=== PATIENT | female | born 1945 | race Caucasian/White ===

== ENCOUNTER → 2016-12-01 | Day surgery (SDC) | payer MEDICARE ==
[~2016-12-01] MED LIST: BUPIVACAINE HCL PF 0.5% 30 ML VIAL ONE; BUPIVACAINE HCL PF 0.75% 30 ML VIAL ONE; LACTATED RINGER'S 1000 ML INJ 1,000 ML ONE; LIDOCAINE 1%/EPINEPHrine 1:100,000 SOLN 20 ML VIAL ONE; MIDAZOLAM HCL 2 MG/2 ML VIAL ONE; ONDANSETRON HCL 4 MG/2 ML VIAL IV PUSH ONE; PROPOFOL 200 MG/20 ML AMP IV ONE; ceFAZolin INJ 1,000 MG VIAL ONE
--- NOTE | 2016-12-02 08:38 | TN ---
cc: CHUCHO DUNN DATE OF SURGERY 12/01/2016 PREOPERATIVE DIAGNOSIS Right foot big toe hallux rigidus, osteoarthritis, metatarsal-phalangeal joint. POSTOPERATIVE DIAGNOSIS Right foot big toe hallux rigidus, osteoarthritis, metatarsal-phalangeal joint. PROCEDURE Right foot big toe hallux rigidus correction with cheilectomy. SURGEON Betty Dunn MD. METABOLIC SPECIALIST ANDRE Aguila SPECIMENS None. ESTIMATED BLOOD LOSS None. COMPLICATIONS None. ANESTHESIA General, regional block Dr. Booker. DRAINS None. TOURNIQUET TIME 22 minutes at 200 mmHg. CONDITION Stable. PLAN OF ACTIVITY Per orders. PROCEDURE My quality assistant ANDRE Aguila was present for the entire surgical case. She was medically necessary for entire case because of the complexity of the case and to facilitate the performance of the procedure. The JEWELRY CASTING MODEL MAKER at the back table did not have the skill set in this case to manipulate the instruments. The patient was brought in to the operating room, had satisfactory regional followed by general anesthesia by Dr. Booker of the department of anesthesia. Right lower extremity was prepped and draped in usual sterile manner. Extremity was exsanguinated by [place] wrap. Tourniquet inflated to 200 mmHg. Longitudinal incision was made over the big toe MTP joint. Dissected down to the subcutaneous tissue. The extensor halluces longus and extensor hallicis brevis tendons were gently retracted laterally. The patient was found to have dorsal osteophyte with significant impingement with dorsiflexion. Also medial osteophyte formation was performed used oscillating saw. Removal of dorsal osteophyte in the medial and lateral osteophytes were also performed with the oscillating saw and with a rongeur. The spur involving the dorsal proximal phalanx was also removed. The patient found to have dorsiflexion up to 75 degrees with no further significant impingement. The wound itself was repaired with 2-0 Vicryl and 3-0 Vicryl in the subcutaneous tissues. Skin approximated with interrupted 3-0 nylon. Sterile dressings were applied. Tourniquet was deflated. The patient tolerated the procedure well and arrived in recovery in stable and satisfactory condition. MD KORTNEY Morrow/MARIE /1:27 PM /8:34 AM MTDReji
== END | disposition home or self-care (01) ==
LOC: ESDC 11:18
PROVIDERS: ATTEND Orthopaedic Surgery Orthopaedic Surgery of the Spine
DX: M20.21 Hallux rigidus, right foot (principal); M19.071 Primary osteoarthritis, right ankle and foot
CPT/HCPCS: 01480; 28289; J0690; J2250; J2405; J3010; J7120

== ENCOUNTER 2018-01-02 14:33 | Emergency (ER) | payer MEDICARE ==
[~2018-01-02] VITALS: Ht 170.2 cm; Wt 63.5 kg
[~2018-01-02 14:33] MED LIST changes: -BUPIVACAINE HCL PF 0.5% 30 ML VIAL ONE; -BUPIVACAINE HCL PF 0.75% 30 ML VIAL ONE; +GABA100C4 PO; +IBUP1TAB7 PO; -LACTATED RINGER'S 1000 ML INJ 1,000 ML ONE; +LEVO.125 PO; -LIDOCAINE 1%/EPINEPHrine 1:100,000 SOLN 20 ML VIAL ONE; +MELO15TA20 PO; -MIDAZOLAM HCL 2 MG/2 ML VIAL ONE; -ONDANSETRON HCL 4 MG/2 ML VIAL IV PUSH ONE; -PROPOFOL 200 MG/20 ML AMP IV ONE; -ceFAZolin INJ 1,000 MG VIAL ONE
[2018-01-02 14:35] VITALS: BP 153/80; PULSE 70; RESP 18; TEMP 97.5; O2SAT 88
[2018-01-02 14:47] VITALS: O2SAT 99
[2018-01-02] MEDS ORDERED: MORPHINE SULFATE 4 MG/ML INJ IM ONE ×2 (15:00→16:15)
[2018-01-02] MEDS ORDERED: ONDANSETRON ODT 4 MG TAB PO ONE (15:00)
--- NOTE | 2018-01-02 15:04 | PD ---
HPI Chief Complaint: Injury Time Seen by Provider: 14:48 Travel History International Travel<30 days: No Contact w/Intl Traveler<30days: No Traveled to known affect area: No History of Present Illness HPI 72-year-old female complains of left shoulder pain left elbow pain. Patient tripped and fell this afternoon. Patient denies loss of consciousness. Patient denies any headache. Patient stated that she had chronic neck pain that is not new. Patient denies any chest pain or shortness of breath. Patient denies abdominal pain. Patient complained of severe pain localized to left shoulder and left elbow. Patient denies any focal weakness or numbness of the extremity. on a scale of 1-10 the pain is a 10. PFSH Past Medical History Diminished Hearing: No Medical other: Yes (hyperthyroid, "radioactive to kill thyroid") Tetanus Vaccination: > 5 Years Past Surgical History Hysterectomy: Yes Social History Alcohol Use: No Tobacco Use: No Substance Use: No Allergies-Medications (Allergen,Severity, Reaction): Coded Allergies: No Known Allergies (Verified Allergy, Unknown, 12/31/17) Reported Meds & Prescriptions Reported Meds & Active Scripts Active Reported Ibuprofen 800 Mg Tab 800 Mg PO Q8H PRN Gabapentin 100 Mg Cap 100 Mg PO HS PRN Meloxicam 15 Mg Tab 15 Mg PO DAILY Synthroid (Levothyroxine Sodium) 125 Mcg Tab 125 Mcg PO DAILY Review of Systems General / Constitutional: No: Fever Eyes: No: Visual changes HENT: No: Headaches Cardiovascular: No: Chest Pain or Discomfort Respiratory: No: Shortness of Breath Gastrointestinal: No: Abdominal Pain Genitourinary: No: Dysuria Musculoskeletal: Positive: Pain Skin: No Rash Neurologic: No: Weakness Psychiatric: No: Depression Endocrine: No: Polydipsia Hematologic/Lymphatic: No: Easy Bruising Physical Exam Narrative GENERAL: Well-nourished, well-developed patient. SKIN: Focused skin assessment warm/dry. HEAD: Normocephalic. EYES: No scleral icterus. No injection or drainage. NECK: Supple, trachea midline. No JVD or lymphadenopathy. CARDIOVASCULAR: Regular rate and rhythm without murmurs, gallops, or rubs. RESPIRATORY: Breath sounds equal bilaterally. No accessory muscle use. GASTROINTESTINAL: Abdomen soft, non-tender, nondistended. MUSCULOSKELETAL: No cyanosis, or edema. BACK: Nontender without obvious deformity. No CVA tenderness. Patient has moderate soft tissue swelling tenderness diffuse over the left shoulder joint. Limited range of motion of left shoulder secondary to pain. Moderate tenderness on palpation diffusely over the left elbow. Limited range of motion of left elbow joint secondary to pain. Sensory motor function distally intact. Good capillary refill. Good radial pulses. Data Data Last Documented VS Vital Signs Date Time Temp Pulse Resp B/P (MAP) Pulse Ox O2 Delivery O2 Flow Rate FiO2 01/02/18 14:47 99 01/02/18 14:35 97.5 70 18 153/80 (104) Orders Orders Morphine Inj (Morphine Inj) (01/02/18 15:00) Ondansetron Odt (Zofran Odt) (01/02/18 15:00) Elbow, Limited (Ap&Lat) (01/02/18 14:54) Shoulder, Limited(2vws) (01/02/18 14:54) Splint Or Brace Apply/Monitor (01/02/18 15:49) Morphine Inj (Morphine Inj) (01/02/18 16:15) Ed Discharge Order (01/02/18 16:28) [facility] Medical Decision Making Medical Screen Exam Complete: Yes Emergency Medical Condition: Yes Interpretation(s) Last Impressions Shoulder X-Ray 01/02/18 145 Signed Impressions: CONCLUSION: Proximal humeral fracture with angulation and displacement involving the surgic al neck and greater tuberosity. Elbow X-Ray 01/02/18 145 Signed Impressions: CONCLUSION: No fracture seen. Differential Diagnosis Differential diagnosis including contusion, fracture, dislocation. Narrative Course 72-year-old female with left shoulder left elbow injury. Morphine 4 mg IM. Zofran 4 mg ODT. Sling and swath left arm. Repeated morphine 4 mg IM. Diagnosis Primary Impression: Fracture of left humerus Qualified Codes: S42.222A - 2-part displaced fracture of surgical neck of left humerus, initial encounter for closed fracture Patient Instructions: General Instructions Additional Instructions: Ice pack. Take medication as needed for pain. Follow-up with orthopedist. Med/Other Pt SpecificInfo: Prescription(s) given Scripts Ondansetron Odt (Zofran Odt) 4 Mg Tab 4 MG SL Q6HR Y for Nausea/Vomiting, #12 TAB 0 Refills Prov: Geoff Gastelum MD 01/02/18 Tramadol (Ultram) 50 Mg Tab 50 MG PO Q6H Y for PAIN, #20 TAB 0 Refills Prov: Geoff Gastelum MD 01/02/18 Disposition: 01 DISCHARGE HOME Condition: Stable Geoff Gastelum MD Jan 02, 2018 15:04
--- NOTE | 2018-01-02 15:41 | RADRPT ---
EXAM DATE: 01/02/2018 3:37 PM EDT AGE/SEX: 72 years / Female INDICATIONS: Pain from fall in distal and proximal humerus. CLINICAL DATA: This is the patient's initial encounter. Patient reports that signs and symptoms have been present for 1 day and indicates a pain score of 10/10. MEDICAL/SURGICAL HISTORY: None. None. COMPARISON: No prior exams available for comparison. FINDINGS: There is a angulated and displaced fracture through the surgical neck of the proximal humerus with mi ld angulation and mild separation. A separate fracture line extends to the greater tuberosity. On the transscapular Y view, the humeral head remains in alignment with the glenoid. The AC joint and visua lized upper ribs are grossly intact. CONCLUSION: Proximal humeral fracture with angulation and displacement involving the surgical neck and greater tu berosity. Electronically signed by: Rudi Dennis MD 01/02/2018 3:40 PM EDT
--- NOTE | 2018-01-02 15:42 | RADRPT ---
EXAM DATE: 01/02/2018 3:36 PM EDT AGE/SEX: 72 years / Female INDICATIONS: Pain from fall in distal and proximal humerus. CLINICAL DATA: This is the patient's initial encounter. Patient reports that signs and symptoms have been present for 1 day and indicates a pain score of 10/10. MEDICAL/SURGICAL HISTORY: None. None. COMPARISON: No prior exams available for comparison. FINDINGS: There is a frontal and oblique view. No true lateral. The osseous structures are grossly of normal al ignment. No fracture seen. No radiopaque foreign body. CONCLUSION: No fracture seen. Electronically signed by: Rudi Dennis MD 01/02/2018 3:41 PM EDT
[2018-01-02] MEDS ORDERED: ZOFR4TAB3 SL (16:32)
[2018-01-02] MEDS ORDERED: TRAM50 PO (16:32)
== END 2018-01-02 17:11 | disposition home or self-care (01) ==
LOC: NEPD 14:33
DX: S42.222A 2-part displaced fracture of surgical neck of left humerus, initial encounter for closed fracture (principal); M25.522 Pain in left elbow; M54.2 Cervicalgia; E07.9 Disorder of thyroid, unspecified; W01.0XXA Fall on same level from slipping, tripping and stumbling without subsequent striking against object, initial encounter
CPT/HCPCS: 73030; 73070; 96372; 99283; J2270

== ENCOUNTER 2018-01-08 11:21 | Emergency (ER) | payer MEDICARE ==
[~2018-01-08] VITALS: Ht 170.2 cm; Wt 63.5 kg
[~2018-01-08 11:21] MED LIST changes: +TRAM50 PO; +ZOFR4TAB3 SL
[2018-01-08 11:25] VITALS: BP 119/74; PULSE 90; RESP 18; TEMP 98.3; O2SAT 97
[2018-01-08] MEDS ORDERED: ASPI-516 CHEW (11:57)
[2018-01-08] MEDS ORDERED: MORPHINE SULFATE 4 MG/ML INJ IM ONE (12:15)
[2018-01-08] MEDS ORDERED: PROMETHAZINE INJ 25 MG/ML VIAL IM ONE (12:15)
[2018-01-08 12:56] VITALS: BP 136/77; PULSE 74; RESP 16; O2SAT 97
[2018-01-08] MEDS ORDERED: HYDR-2376 PO (13:13)
--- NOTE | 2018-01-08 13:14 | PD ---
HPI Chief Complaint: Musculoskeletal Complaint Time Seen by Provider: 11:51 Travel History International Travel<30 days: No Contact w/Intl Traveler<30days: No Traveled to known affect area: No History of Present Illness HPI Patient is a 72-year-old female presenting to emergency department for further evaluation after sustaining a proximal humerus fracture on January 02. Patient states that the pain is unrelieved with tramadol. She feels as if the sling is not helping. She denies any numbness, increased swelling, weakness. She also reports frustration with not being able to obtain an orthopedic surgeon quickly enough. She does have an appointment secured with Dr. Genao on Thursday at 430. Patient rates her pain a 9 out of 10, aching, throbbing, sore. No alleviating factors, pain is worse with movement. Pain is constant in nature. PFSH Past Medical History Diminished Hearing: No Past Surgical History Hysterectomy: Yes Social History Alcohol Use: No Tobacco Use: No Substance Use: No Allergies-Medications (Allergen,Severity, Reaction): Coded Allergies: No Known Allergies (Verified Allergy, Unknown, 01/08/18) Reported Meds & Prescriptions Reported Meds & Active Scripts Active Zofran Odt (Ondansetron Odt) 4 Mg Tab 4 Mg SL Q6HR PRN Ultram (Tramadol HCl) 50 Mg Tab 50 Mg PO Q6H PRN Reported Aspirin 81 Mg Chew 81 Mg CHEW DAILY Ibuprofen 800 Mg Tab 800 Mg PO Q8H PRN Gabapentin 100 Mg Cap 100 Mg PO HS PRN Meloxicam 15 Mg Tab 15 Mg PO DAILY Synthroid (Levothyroxine Sodium) 125 Mcg Tab 125 Mcg PO DAILY Review of Systems Except as stated in HPI: all other systems reviewed are Neg Musculoskeletal: Positive: Myalgias, Arthralgias, Limited ROM, Edema, Pain Skin: Positive Change in Pigmentation Physical Exam Narrative GENERAL: Well-developed, well-nourished, well-appearing female. Presenting in no acute distress. SKIN: Warm and dry. Ecchymosis noted to the left shoulder, left breast, left arm. Mild edema noted to the left forearm, nonpitting. HEAD: Atraumatic. Normocephalic. EYES: Pupils equal and round. No scleral icterus. No injection or drainage. ENT: No nasal bleeding or discharge. Mucous membranes pink and moist. NECK: Trachea midline. No JVD. CARDIOVASCULAR: Regular rate and rhythm. RESPIRATORY: No accessory muscle use. Clear to auscultation. Breath sounds equal bilaterally. GASTROINTESTINAL: Abdomen soft, non-tender, nondistended. Hepatic and splenic margins not palpable. MUSCULOSKELETAL: Extremities without clubbing, cyanosis. 2+ radial pulse, brisk less than 3 second capillary refill. NEUROLOGICAL: Awake and alert. No obvious cranial nerve deficits. Motor grossly within normal limits. Five out of 5 muscle strength in the arms and legs. Normal speech. PSYCHIATRIC: Appropriate mood and affect; insight and judgment normal. Data Data Last Documented VS Vital Signs Date Time Temp Pulse Resp B/P (MAP) Pulse Ox O2 Delivery O2 Flow Rate FiO2 01/08/18 12:56 74 16 136/77 (96) 97 Room Air 01/08/18 11:25 98.3 Orders Orders Morphine Inj (Morphine Inj) (01/08/18 12:15) Promethazine Inj (Phenergan Inj) (01/08/18 12:15) [employer] Request For Service (01/08/18 12:07) [facility] Medical Decision Making Medical Screen Exam Complete: Yes Emergency Medical Condition: Yes Interpretation(s) Vital Signs Date Time Temp Pulse Resp B/P (MAP) Pulse Ox O2 Delivery O2 Flow Rate FiO2 01/08/18 12:56 74 16 136/77 (96) 97 Room Air 01/08/18 11:25 98.3 90 18 119/74 (89) 97 Differential Diagnosis Acute pain versus compartment syndrome versus other Narrative Course Patient is a 72-year-old female presenting to emerge department for reevaluation after sustaining a left proximal humerus fracture on the . Patient is neurovascularly intact. [employer] evaluated placement of sling, patient was given morphine IM as well as Phenergan IM for pain control. She has an appointment with Dr. Sullivan on Thursday, she was encouraged to keep that. Patient will be given Lortab for pain. She was advised that her pain may not be completely controlled until her injury is healed, she was encouraged to apply warm heat to the affected area. Keep the sling on for comfort, take medications as directed. She was encouraged to begin a bowel regimen to avoid constipation. He was encouraged return to emergency department for any new worsening symptoms. Patient verbalized understanding of instructions. Patient stable for discharge. Diagnosis Primary Impression: Fracture of left humerus Qualified Codes: S42.292D - Other displaced fracture of upper end of left humerus, subsequent encounter for fracture with routine healing Referrals: Duke Dunn MD Patient Instructions: Constipation (ED), General Instructions, Narcotic Pain Management (ED) Additional Instructions: Follow-up with Dr. Genao on Thursday as scheduled Obtain [id number] MiraLAX and use daily as directed You may trial magnesium citrate which is [id number] for constipation Do not drive or operate machinery while taking narcotic pain medication Return to emergency department for any new or worsening symptoms Med/Other Pt SpecificInfo: Prescription(s) given Scripts Hydrocodone-Acetaminophen (Hydrocodone-Acetaminophen) 7.5-300 Mg Tab 1 TAB PO Q4H Y for PAIN, #15 TAB 0 Refills Prov: Bridgette Jenkins 01/08/18 Disposition: 01 DISCHARGE HOME Condition: Stable Bridgette Jenkins Jan 08, 2018 13:14
[2018-01-09] MEDS ORDERED: ARMO30TA PO (16:10)
[2018-01-09] MEDS ORDERED: COLY4000S PO ×2 (19:11→20:12)
[2018-01-09] MEDS ORDERED: MIRA3350 PO (20:06)
== END 2018-01-08 13:31 | disposition home or self-care (01) ==
LOC: NEPD 11:21
DX: S42.292D Other displaced fracture of upper end of left humerus, subsequent encounter for fracture with routine healing (principal); X58.XXXD Exposure to other specified factors, subsequent encounter; Z79.899 Other long term (current) drug therapy
CPT/HCPCS: 96372; 99283; J2270; J2550

== ENCOUNTER 2018-01-09 14:03 | Emergency (ER) | payer MEDICARE ==
[~2018-01-09] VITALS: Ht 170.2 cm; Wt 65.0 kg
[~2018-01-09 14:03] MED LIST changes: +ASPI-516 CHEW; +HYDR-2376 PO
[2018-01-09 14:11] VITALS: BP 129/87; PULSE 87; RESP 16; TEMP 98.6; O2SAT 96
[2018-01-09] MEDS ORDERED: ARMO30TA PO (16:10)
[2018-01-09] MEDS ORDERED: SODIUM CHLORID 0.9% 500 ML INJ 500 ML IV ONE (16:15)
[2018-01-09] MEDS ORDERED: KETOROLAC TROMETHAMINE 30 MG/ML (IVP) VIAL IVP ONE (16:15)
[2018-01-09 16:48] LABS: AUTOMATED NEUTROPHIL # 6.4 TH/MM3 (1.8-7.7); BASOPHIL % 0.4 % (0.0-2.0); EOSINOPHIL # 0.2 TH/MM3 (0-0.4); HEMATOCRIT 34.5 % (35.0-46.0); HEMOGLOBIN 11.5 GM/DL (11.6-15.3); LYMPH % 10.6 % (9.0-44.0); LYMPHOCYTE # 0.9 TH/MM3 (1.0-4.8); MEAN CELL VOLUME 86.2 FL (80.0-100.0); MEAN CORPUSCULAR HEMOGLOBIN 28.8 PG (27.0-34.0); MEAN CORPUSCULAR HGB CONC 33.4 % (32.0-36.0); MEAN PLATELET VOLUME 7.7 FL (7.0-11.0); MONO % 9.3 % (0.0-8.0); MONOCYTE # 0.8 TH/MM3 (0-0.9); NEUT % 77.7 % (16.0-70.0); PLATELET COUNT 290 TH/MM3 (150-450); RED CELL DISTRIBUTION WIDTH 14.9 % (11.6-17.2); WHITE BLOOD COUNT 8.2 TH/MM3 (4.0-11.0)
[2018-01-09 17:07] LABS: ALBUMIN 3.2 GM/DL (3.4-5.0); AST (GOT) 37 U/L (15-37); BICARBONATE 26.4 MEQ/L (21.0-32.0); BLOOD UREA NITROGEN 11 MG/DL (7-18); CALCIUM 8.5 MG/DL (8.5-10.1); CHLORIDE 101 MEQ/L (98-107); CREATININE 0.65 MG/DL (0.50-1.00); GLOMERULAR FILTRATION RATE 90 ML/MIN (>89); GLUCOSE,RANDOM 78 MG/DL (74-106); SODIUM (NA) 136 MEQ/L (136-145)
[2018-01-09 17:10] LABS: ALKALINE PHOSPHATASE 103 U/L (45-117); ALT (GPT) 37 U/L (10-53); TOTAL BILIRUBIN ADULT 0.8 MG/DL (0.2-1.0); TOTAL PROTEIN 7.2 GM/DL (6.4-8.2)
[2018-01-09 17:32] VITALS: BP 119/69; PULSE 69; RESP 18; TEMP 97.8; O2SAT 98
--- NOTE | 2018-01-09 17:46 | PD ---
HPI Chief Complaint: GI Complaint Time Seen by Provider: 15:48 Travel History International Travel<30 days: No Contact w/Intl Traveler<30days: No Traveled to known affect area: No History of Present Illness HPI 72-year-old female that presents to the ED for evaluation of constipation and left shoulder pain. Patient was seen here yesterday for left shoulder injury. She actually was seen here initially earlier last week and had a fracture and was told to follow with orthopedic surgeon. Check she has an appointment on Thursday with him and was seen yesterday because the pain medication did not help. She was given a prescription for stronger pain medication but was warned that the pain medication and cause constipation. She has noted that she has not had a bowel movement in 9 days and she is concerned that she might be having an obstruction. She has lower abdominal pain. She denies any fevers chills or sweats. Denies any nausea or vomiting. She has not taken the pain medication the past 24 hours because of this. No other medical issues reported. No numbness, drooling, weakness. Per patient she is also a bit concerned about the left shoulder as it seems to be getting more bruised up. No other injuries reported. She uses the sling. Per patient her pain currently on the abdomen is 3 out of 10 and on the left shoulder is 7 out of 10. PFSH Past Medical History Arthritis: Yes Diminished Hearing: No Medical other: Yes Musculoskeletal: Yes Thyroid Disease: Yes Tetanus Vaccination: > 5 Years Influenza Vaccination: No ?: Not : 1 Para: 1 Past Surgical History Gynecologic Surgery: Yes (Hysterectomy) Hysterectomy: Yes Social History Alcohol Use: No Tobacco Use: No Substance Use: No Allergies-Medications (Allergen,Severity, Reaction): Coded Allergies: No Known Allergies (Verified Allergy, Unknown, 01/09/18) Reported Meds & Prescriptions Reported Meds & Active Scripts Active Miralax Powder (Polyethylene Glycol 3350 Powder) 17 Gm Powd 17 Gm PO DAILY Mix and dissolve one measuring cap-ful (17 grams) in water or juice. Golytely 236 gm (Polyethylene Glycol/Electrolytes) 4,000 Ml Soln 4,000 Ml PO ONCE Hydrocodone-Acetaminophen 7.5-300 Mg Tab 1 Tab PO Q4H PRN Zofran Odt (Ondansetron Odt) 4 Mg Tab 4 Mg SL Q6HR PRN Ultram (Tramadol HCl) 50 Mg Tab 50 Mg PO Q6H PRN Reported [facility] Thyroid (Thyroid) 30 Mg Tab 30 Mg PO DAILY Aspirin 81 Mg Chew 81 Mg CHEW DAILY Gabapentin 100 Mg Cap 100 Mg PO HS PRN Review of Systems Except as stated in HPI: all other systems reviewed are Neg Physical Exam Narrative GENERAL: SKIN: Warm and dry. HEAD: Atraumatic. Normocephalic. EYES: Pupils equal and round. No scleral icterus. No injection or drainage. ENT: No nasal bleeding or discharge. Mucous membranes pink and moist. Tongue is midline. No uvula deviation. NECK: Trachea midline. No JVD. CARDIOVASCULAR: Regular rate and rhythm. No murmurs, S3, S4. RESPIRATORY: No accessory muscle use. Clear to auscultation. Breath sounds equal bilaterally. GASTROINTESTINAL: Abdomen soft, tender with touch on the lower abdomen, nondistended. Hepatic and splenic margins not palpable. MUSCULOSKELETAL: Extremities without clubbing, cyanosis, or edema. No obvious deformities. Bruising and deformity to the shoulder on the left shoulder. Has sling in place. NEUROLOGICAL: Awake and alert. No obvious cranial nerve deficits. Motor grossly within normal limits. Five out of 5 muscle strength in the arms and legs. Normal speech. PSYCHIATRIC: Appropriate mood and affect; insight and judgment normal. Data Data Last Documented VS Vital Signs Date Time Temp Pulse Resp B/P (MAP) Pulse Ox O2 Delivery O2 Flow Rate FiO2 01/09/18 17:32 97.8 69 18 119/69 (86) 98 Room Air Orders Orders Complete Blood Count With Diff (01/09/18 16:03) Comprehensive Metabolic Panel (01/09/18 16:03) Lipase (01/09/18 16:03) Ct Abd/Pel W Iv Contrast(Rout) (01/09/18 16:03) Iv Access Insert/Monitor (01/09/18 16:03) Ketorolac Inj (Toradol Inj) (01/09/18 16:15) Sodium Chlorid 0.9% 500 Ml Inj (Ns 500 M (01/09/18 16:15) Shoulder, Limited(2vws) (01/09/18 ) Iohexol 350 Inj (Omnipaque 350 Inj) (01/09/18 18:16) Fleets Enema (Adult) (Fleets Enema (Adul (01/09/18 19:15) Ed Discharge Order (01/09/18 20:06) Labs Laboratory Tests Test 01/09/18 16:15 White Blood Count 8.2 TH/MM3 Red Blood Count 4.00 MIL/MM3 Hemoglobin 11.5 GM/DL Hematocrit 34.5 % Mean Corpuscular Volume 86.2 FL Mean Corpuscular Hemoglobin 28.8 PG Mean Corpuscular Hemoglobin Concent 33.4 % Red Cell Distribution Width 14.9 % Platelet Count 290 TH/MM3 Mean Platelet Volume 7.7 FL Neutrophils (%) (Auto) 77.7 % Lymphocytes (%) (Auto) 10.6 % Monocytes (%) (Auto) 9.3 % Eosinophils (%) (Auto) 2.0 % Basophils (%) (Auto) 0.4 % Neutrophils # (Auto) 6.4 TH/MM3 Lymphocytes # (Auto) 0.9 TH/MM3 Monocytes # (Auto) 0.8 TH/MM3 Eosinophils # (Auto) 0.2 TH/MM3 Basophils # (Auto) 0.0 TH/MM3 CBC Comment DIFF FINAL Differential Comment Blood Urea Nitrogen 11 MG/DL Creatinine 0.65 MG/DL Random Glucose 78 MG/DL Total Protein 7.2 GM/DL Albumin 3.2 GM/DL Calcium Level 8.5 MG/DL Alkaline Phosphatase 103 U/L Aspartate Amino Transf (AST/SGOT) 37 U/L Alanine Aminotransferase (ALT/SGPT) 37 U/L Total Bilirubin 0.8 MG/DL Sodium Level 136 MEQ/L Potassium Level 4.4 MEQ/L Chloride Level 101 MEQ/L Carbon Dioxide Level 26.4 MEQ/L Anion Gap 9 MEQ/L Estimat Glomerular Filtration Rate 90 ML/MIN Lipase 41 U/L [facility] Medical Decision Making Medical Screen Exam Complete: Yes Emergency Medical Condition: Yes Medical Record Reviewed: Yes Interpretation(s) Last Impressions Abdomen/Pelvis CT 01/09/18 1603 Signed Impressions: CONCLUSION: 1. Diffuse ileus with fluid in the proximal colon and formed stool in the dist al colon. No obstruction. No free air. Shoulder X-Ray 01/09/18 0000 Signed Impressions: CONCLUSION: Proximal humeral fracture displaced by at least 1.7 cm. CBC & BMP Diagram 01/09/18 16:15 Total Protein 7.2, Albumin 3.2 L, Calcium Level 8.5, Alkaline Phosphatase 103, Aspartate Amino Transf (AST/SGOT) 37, Alanine Aminotransferase (ALT/SGPT) 37, Total Bilirubin 0.8 lipase WNL Differential Diagnosis Constipation versus obstruction versus diverticulitis versus chronic constipation versus fracture versus chronic pain versus fracture Narrative Course 72-year-old female that presents to the ED for evaluation of left shoulder pain and constipation. Labs and imaging order. Patient offered Toradol she herself does not want to take any pain medication secondary to concern for obstruction. She was told that Toradol will likely not cause any constipation and she agreed with this. Labs and imaging showed what appears to be constipation with ileus. Fracture of the left humerus. Case discussed with my attending Dr. Chavez who recommended rectal exam for rectal disimpaction. Patient agree with this. I attempted fecal disimpaction the patient was able to get a little bit of stool out. She cannot tolerate the procedure much so it was stopped. I gave her the option to have an enema. She had an enema with minimal results. This time I think is reasonable per my attendings recommendation to try GoLYTELY. Patient was given a short prescription for this. She was also given a prescription for MiraLAX. Told to follow-up closely with PCP. See ED if worsening symptoms. Follow with orthopedic surgeon on Thursday as already scheduled. Diagnosis Primary Impression: Constipation Qualified Codes: K59.03 - Drug induced constipation Additional Impression: Fracture of left humerus Qualified Codes: S42.212D - Unspecified displaced fracture of surgical neck of left humerus, subsequent encounter for fracture with routine healing Patient Instructions: General Instructions Additional Instructions: Take medication as prescribed. He can keep taking milk of magnesia twice a day to help with symptoms. YOu can try enemas to help loosen stool. He can also add GoLYTELY to help he go. Once the bottle started going to should be able to go. Follow-up with PCP. See ED if any worsening symptoms. Med/Other Pt SpecificInfo: Prescription(s) given Scripts Polyethylene Glycol 3350 Powder (Miralax Powder) 17 Gm Powd 17 GM PO DAILY for Constipation, #1 CAN 0 Refills Mix and dissolve one measuring cap-ful (17 grams) in water or juice. Prov: Alice Leon MD 01/09/18 Peg-Electrolytes (Golytely 236 gm) 4,000 Ml Soln 4000 ML PO ONCE for Bowel Cleanser, #1 CONTAINER 0 Refills Prov: Alice Leon MD 01/09/18 Disposition: 01 DISCHARGE HOME Condition: Stable Aly Rodriguez Jan 09, 2018 17:46
[2018-01-09] MEDS ORDERED: IOHEXOL 350 MG/ML 10 ML VIAL (for RAD DIAG) IVCONTRAST ONE (18:16)
--- NOTE | 2018-01-09 18:27 | RADRPT ---
EXAM DATE: 01/09/2018 6:21 PM EDT AGE/SEX: 72 years / Female INDICATIONS: Pain in proximal shoulder, due to fracture one week ago. CLINICAL DATA: This is the patient's sequela encounter. Patient reports that signs and symptoms have been present for 1 week and indicates a pain score of 10/10. MEDICAL/SURGICAL HISTORY: None. None. COMPARISON: [facility] [place] ([facility]), 01/02/2018. . FINDINGS: There is a displaced fracture of the proximal left humerus. No dislocation of the shoulder joint. No other fractures are seen. CONCLUSION: Proximal humeral fracture displaced by at least 1.7 cm. Electronically signed by: Sung Nicholas MD 01/09/2018 6:25 PM EDT
--- NOTE | 2018-01-09 18:29 | RADRPT ---
EXAM DATE: 01/09/2018 6:17 PM EDT AGE/SEX: 72 years / Female INDICATIONS: Constipation and distention. Last bowel movement nine days ago. CLINICAL DATA: This is the patient's initial encounter. Patient reports that signs and symptoms have been present for 1 week and indicates a pain score of 2/10. MEDICAL/SURGICAL HISTORY: Hyperthyroidism. Osteoarthritis. Recent left arm fracture. Hysterec shelia. ORAL CONTRAST: No oral contrast ingested. RADIATION DOSE: 9.48 CTDI (mGy) COMPARISON: No prior exams available for comparison. TECHNIQUE: Multiple contiguous axial images were obtained through the abdomen and pelvis following b olus infusion of 95 ml Omnipaque 350 (iohexol) nonionic water-soluble contrast as a single exam dos e. No oral contrast ingested. Using automated exposure control and adjustment of the mA and/or kV ac cording to patient size, the radiation dose was kept as low as reasonably achievable to obtain optima l diagnostic quality images. FINDINGS: Lung bases demonstrate minimal dependent atelectasis. No acute findings in the liver. Small cyst in t he right lobe. Spleen, adrenals, kidneys and pancreas demonstrate no acute findings. No calcified gal lstones or biliary ductal dilatation. No adenopathy. There is a mild ileus with gas and fluid in small and large bowel. Right colon is distended up to 7.6 cm with fluid. No obstruction. Contrast does reach the distal large bowel. There is a mild compression deformity of L3 and L4 which appear old. CONCLUSION: 1. Diffuse ileus with fluid in the proximal colon and formed stool in the distal colon. No obstructi on. No free air. Electronically signed by: Sung Nicholas MD 01/09/2018 6:28 PM EDT
[2018-01-09] MEDS ORDERED: COLY4000S PO ×2 (19:11→20:12)
[2018-01-09] MEDS ORDERED: SOD PHOSPHATE/SOD BIPHOSPHATE (ADULT) ENEMA 133ML RECTAL ONE (19:15)
--- NOTE | 2018-01-09 19:19 | PD ---
Physical Exam Date Seen by Provider: Jan 09, 2018 Time Seen by Provider: 17:00 Narrative I, Dr. Leon, have reviewed the advance practice practitioner's documentation and am in agreement, met with the patient face to face, made the diagnosis, and the medical decision making was done by me. *My assessment and Findings: Patient seen and evaluated with PA, please see PA notes for further details. Here because of constipation for 9 days, abdominal discomfort, has been on opiate pain medications for left humeral fracture. Laboratory Tests Test 01/09/18 16:15 Hemoglobin 11.5 GM/DL (11.6-15.3) Hematocrit 34.5 % (35.0-46.0) Neutrophils (%) (Auto) 77.7 % (16.0-70.0) Monocytes (%) (Auto) 9.3 % (0.0-8.0) Lymphocytes # (Auto) 0.9 TH/MM3 (1.0-4.8) Albumin 3.2 GM/DL (3.4-5.0) Lipase 41 U/L (73-393) Last 24 hours Impressions Abdomen/Pelvis CT 01/09/18 1603 Signed Impressions: CONCLUSION: 1. Diffuse ileus with fluid in the proximal colon and formed stool in the dist al colon. No obstruction. No free air. Shoulder X-Ray 01/09/18 0000 Signed Impressions: CONCLUSION: Proximal humeral fracture displaced by at least 1.[address] did not show any signs of acute intra-abdominal processes. She is quite constipated. She has some underlying diffuse ileus, is on opiate pain medication which is likely making this worse. Patient has not been vomiting I do not think that she is obstructed. A rectal shows large stool mass however patient was not able to tolerate more disimpaction. At this point, she is comfortable with p.o. GoLYTELY and enemas. Return for any worsening in pain, vomiting, or new symptoms as needed. The plan has been discussed with her and she states understanding. Follow-up with orthopedics regarding left humeral fracture. Patient is supposed to see them on Thursday. Data Data Last Documented VS Vital Signs Date Time Temp Pulse Resp B/P (MAP) Pulse Ox O2 Delivery O2 Flow Rate FiO2 01/09/18 17:32 97.8 69 18 119/69 (86) 98 Room Air Orders Orders Complete Blood Count With Diff (01/09/18 16:03) Comprehensive Metabolic Panel (01/09/18 16:03) Lipase (01/09/18 16:03) Ct Abd/Pel W Iv Contrast(Rout) (01/09/18 16:03) Iv Access Insert/Monitor (01/09/18 16:03) Ketorolac Inj (Toradol Inj) (01/09/18 16:15) Sodium Chlorid 0.9% 500 Ml Inj (Ns 500 M (01/09/18 16:15) Shoulder, Limited(2vws) (01/09/18 ) Iohexol 350 Inj (Omnipaque 350 Inj) (01/09/18 18:16) Fleets Enema (Adult) (Fleets Enema (Adul (01/09/18 19:15) Labs Laboratory Tests Test 01/09/18 16:15 White Blood Count 8.2 TH/MM3 Red Blood Count 4.00 MIL/MM3 Hemoglobin 11.5 GM/DL Hematocrit 34.5 % Mean Corpuscular Volume 86.2 FL Mean Corpuscular Hemoglobin 28.8 PG Mean Corpuscular Hemoglobin Concent 33.4 % Red Cell Distribution Width 14.9 % Platelet Count 290 TH/MM3 Mean Platelet Volume 7.7 FL Neutrophils (%) (Auto) 77.7 % Lymphocytes (%) (Auto) 10.6 % Monocytes (%) (Auto) 9.3 % Eosinophils (%) (Auto) 2.0 % Basophils (%) (Auto) 0.4 % Neutrophils # (Auto) 6.4 TH/MM3 Lymphocytes # (Auto) 0.9 TH/MM3 Monocytes # (Auto) 0.8 TH/MM3 Eosinophils # (Auto) 0.2 TH/MM3 Basophils # (Auto) 0.0 TH/MM3 CBC Comment DIFF FINAL Differential Comment Blood Urea Nitrogen 11 MG/DL Creatinine 0.65 MG/DL Random Glucose 78 MG/DL Total Protein 7.2 GM/DL Albumin 3.2 GM/DL Calcium Level 8.5 MG/DL Alkaline Phosphatase 103 U/L Aspartate Amino Transf (AST/SGOT) 37 U/L Alanine Aminotransferase (ALT/SGPT) 37 U/L Total Bilirubin 0.8 MG/DL Sodium Level 136 MEQ/L Potassium Level 4.4 MEQ/L Chloride Level 101 MEQ/L Carbon Dioxide Level 26.4 MEQ/L Anion Gap 9 MEQ/L Estimat Glomerular Filtration Rate 90 ML/MIN Lipase 41 U/L MDM Medical Record Reviewed: Yes Supervised Visit with NANCY: Yes Diagnosis Primary Impression: Constipation Scripts Peg-Electrolytes (Golytely 236 gm) 4,000 Ml Soln 4000 ML PO ONCE for Bowel Cleanser, #1 CONTAINER 0 Refills Prov: Alice Leon MD 01/09/18 Disposition: 01 DISCHARGE HOME Condition: Stable Alice Leon MD Jan 09, 2018 19:18
[2018-01-09] MEDS ORDERED: MIRA3350 PO (20:06)
== END 2018-01-09 20:16 | disposition home or self-care (01) ==
LOC: NEPE 14:03
DX: S42.202D Unspecified fracture of upper end of left humerus, subsequent encounter for fracture with routine healing (principal); K59.00 Constipation, unspecified; K56.7 Ileus, unspecified; M19.90 Unspecified osteoarthritis, unspecified site; E07.9 Disorder of thyroid, unspecified; Z79.82 Long term (current) use of aspirin; Z79.899 Other long term (current) drug therapy; X58.XXXD Exposure to other specified factors, subsequent encounter
CPT/HCPCS: 73030; 74177; 80053; 83690; 85025; 96361; 96374; 99285; J1885; J7040; Q9967

== ENCOUNTER → 2018-01-12 | Outpatient (CLI) | payer MEDICARE ==
[~2018-01-12] MED LIST changes: +ARMO30TA PO; +COLY4000S PO; -IBUP1TAB7 PO; -LEVO.125 PO; -MELO15TA20 PO; +MIRA3350 PO
[2018-01-12 11:05] LABS: BASOPHIL # 0.1 TH/MM3 (0-0.2); BASOPHIL % 1.3 % (0.0-2.0); EOSINOPHIL # 0.2 TH/MM3 (0-0.4); HEMATOCRIT 33.7 % (35.0-46.0); LYMPH % 14.2 % (9.0-44.0); LYMPHOCYTE # 0.8 TH/MM3 (1.0-4.8); MEAN CELL VOLUME 86.4 FL (80.0-100.0); MEAN CORPUSCULAR HEMOGLOBIN 28.2 PG (27.0-34.0); MEAN CORPUSCULAR HGB CONC 32.6 % (32.0-36.0); MEAN PLATELET VOLUME 7.1 FL (7.0-11.0); MONO % 9.3 % (0.0-8.0); MONOCYTE # 0.5 TH/MM3 (0-0.9); NEUT % 71.2 % (16.0-70.0); PLATELET COUNT 327 TH/MM3 (150-450); RED CELL DISTRIBUTION WIDTH 15.2 % (11.6-17.2); WHITE BLOOD COUNT 5.6 TH/MM3 (4.0-11.0)
[2018-01-12 11:30] LABS: BICARBONATE 27.1 MEQ/L (21.0-32.0); CALCIUM 8.9 MG/DL (8.5-10.1); CREATININE 0.72 MG/DL (0.50-1.00)
--- NOTE | 2018-01-12 16:50 | EKG ---
Date Performed: 01/12/2018 Time Performed: 11:16:20 PTAGE: 72 years EKG: Sinus rhythm . Septal T wave changes are nonspecific Low QRS voltages in precordial leads Borderline ECG NO PREVIOUS TRACING DOCTOR: Dl Menard Interpretating Date/Time 01/12/2018 16:46:20
== END ==
LOC: CLAB 10:38
PROVIDERS: ATTEND Orthopaedic Surgery Orthopaedic Surgery of the Spine
DX: Z01.818 Encounter for other preprocedural examination (principal); Z01.810 Encounter for preprocedural cardiovascular examination; S42.291A Other displaced fracture of upper end of right humerus, initial encounter for closed fracture; X58.XXXA Exposure to other specified factors, initial encounter
CPT/HCPCS: 36415; 80048; 85025; 93005

== ENCOUNTER 2018-01-14 06:17 | Observation (INO) | payer MEDICARE ==
[~2018-01-14] VITALS: Ht 170.2 cm; Wt 69.7 kg
[2018-01-14] MEDS ORDERED: CHLORHEXIDINE GLUCONATE 2 % 1 PACK (2 CLOTHS) TOPICAL PRN (06:45)
[2018-01-14] MEDS ORDERED: METOPROLOL TARTRATE 25 MG TAB PO PRN (06:45)
[2018-01-14] MEDS ORDERED: SODIUM CHLORID 0.9% 500 ML IV PRN (06:45)
[2018-01-14] MEDS ORDERED: ceFAZolin 2 GM PREMIX 50 ML IV SCH (06:45)
[2018-01-14] MEDS ORDERED: VANCOMYCIN 1000 MG/NS 250 ML (for <70 kg) IV SCH ×2 (06:45)
[2018-01-14] MEDS ORDERED: POVIDONE IODINE 5% (ANTISEPSIS KIT) 4 APPLICATIONS EACH NARE PRN (06:45)
[2018-01-14] MEDS ORDERED: CHLORHEXIDINE GLUCONATE 4% SOLN 120 ML BTL TOPICAL SCH (06:45)
[2018-01-14] MEDS ORDERED: LACTATED RINGER'S 1000 ML IV PRN (06:45)
[2018-01-14 07:32] VITALS: PULSE 62
[2018-01-14] MEDS ORDERED: GENTAMICIN SULFATE 80 MG/2 ML VIAL ONE (07:44)
[2018-01-14] MEDS ORDERED: fentaNYL CITRATE 250 MCG/5 ML AMP ONE (07:45)
[2018-01-14] MEDS ORDERED: FAT EMULSION 20% INJ 0 ML ONE (07:54)
[2018-01-14 07:59] LABS: AUTOMATED NEUTROPHIL # 3.3 TH/MM3 (1.8-7.7); BASOPHIL # 0.1 TH/MM3 (0-0.2); BASOPHIL % 1.3 % (0.0-2.0); EOSINOPHIL # 0.2 TH/MM3 (0-0.4); EOSINOPHIL % 4.1 % (0.0-4.0); HEMATOCRIT 31.7 % (35.0-46.0); HEMOGLOBIN 10.6 GM/DL (11.6-15.3); LYMPH % 16.8 % (9.0-44.0); LYMPHOCYTE # 0.8 TH/MM3 (1.0-4.8); MEAN CELL VOLUME 85.7 FL (80.0-100.0); MEAN CORPUSCULAR HEMOGLOBIN 28.7 PG (27.0-34.0); MEAN CORPUSCULAR HGB CONC 33.5 % (32.0-36.0); MEAN PLATELET VOLUME 6.9 FL (7.0-11.0); MONO % 9.9 % (0.0-8.0); MONOCYTE # 0.5 TH/MM3 (0-0.9); NEUT % 67.9 % (16.0-70.0); PLATELET COUNT 273 TH/MM3 (150-450); RED CELL DISTRIBUTION WIDTH 15.2 % (11.6-17.2); WHITE BLOOD COUNT 4.8 TH/MM3 (4.0-11.0)
[2018-01-14] MEDS ORDERED: HYDR-2376 PO (07:59)
[2018-01-14] MEDS ORDERED: BUPIVACAINE LIPOSOME PF 1.3% 20 ML VIAL ONE (08:06)
[2018-01-14] MEDS ORDERED: BUPIVACAINE HCL PF 0.25% 30 ML VIAL ONE (08:07)
[2018-01-14] MEDS ORDERED: MIDAZOLAM HCL 5 MG/5 ML VIAL ONE (08:08)
--- NOTE | 2018-01-14 10:08 | PD.OP ---
cc: Prashant Hull MD Operative Report Date of Surgery: Jan 14, 2018 Preoperative Diagnosis: Displaced left proximal humerus fracture Postoperative Diagnosis: Procedure: Open reduction internal fixation left proximal humerus Anesthesia: General with regional block Surgeon: Prashant Hull Canal Equipment Maintenance Supervisor(s): REESE Forrest PA-C The surgical procedure was assisted by my physician registered dental assistant. My P.A. presence was necessary throughout this case for the manipulation and positioning of the surgical extremity. My P.A. was assisting me throughout the duration of this procedure. The skill set of a physician registered dental assistant was medically necessary to complete this procedure. During the surgical case the surgical instrument repair specialist was working at the back table and the physician registered dental assistant was directly assisting me. Operation and Findings: Implants used: Synthes Plan of activity: Sling and swath, pendulum exercises Details of procedure: Patient was seen and evaluated preoperatively. Patient was found to have a displaced proximal humerus fracture. The risks and benefits of surgical and nonsurgical options were discussed in detail and informed consent was obtained for surgery. Patient was brought to the operating room and placed on or table. IV sedation and GETA were administered by anesthesiologist. Antibiotics were given prior to incision. Operative arm and shoulder were prepped with alcohol followed by Hibiclens and draped usual sterile fashion. Timeout procedure was performed. Procedure began with a 5 inch incision over the anterior shoulder. Cephalic vein was identified. A deltopectoral approach was utilized. The fracture was now visualized. Soft tissue was retracted. A #5 FiberWire suture was placed into the rotator rotator cuff and greater tuberosity. Attention was now turned to reduction. Gentle traction was applied. The humeral shaft was reduced to the humeral head. Fracture was manipulated to achieve excellent reduction. Multiplanar fluoroscopy confirmed well aligned fracture. Multiple K wires were used to hold provisional fixation. A Synthes proximal humerus plate was selected. Plate was provisionally held in place K wires. 3.5 cortical screws were used to compress plate to bone. Fluoroscopy confirmed appropriate plate placement and fracture reduction. Multiple locking screws were now placed in the humeral head. Screws were predrilled and premeasured for appropriate length. Care was taken not to penetrate the articular surface. Additional screws were placed in the humeral shaft. The FiberWire suture was passed through the holes of the plate and sutured to the plate for additional stability. Final fluoroscopy revealed well aligned fracture with well-placed hardware. Wound was thoroughly irrigated. Fascia was closed with #1 Vicryl, subcutaneous tissues closed with 3-0 Vicryl, and skin was closed with amelie. Sterile dressings were applied. Patient was placed into a sling. Patient was awakened and transferred to recovery in stable condition. Needle and sponge counts were correct. Prashant Hull MD Jan 14, 2018 10:08
[2018-01-14] MEDS ORDERED: ERGOCALCIFEROL (VIT D2) 50,000 UNIT CAP PO SCH (10:15)
[2018-01-14] MEDS ORDERED: ONDANSETRON ODT 4 MG TAB PO PRN (10:15)
[2018-01-14] MEDS ORDERED: MORPHINE SULFATE 4 MG/ML INJ IV PUSH PRN (10:15)
[2018-01-14] MEDS ORDERED: DO NOT ADM ANY ANTICOAGULANT DRUGS PRN (10:30)
[2018-01-14] MEDS ORDERED: ROCURONIUM INJ 50 MG/5 ML SYRINGE IV PUSH ONE (10:40)
[2018-01-14] MEDS ORDERED: PROPOFOL 200 MG/20 ML AMP IV ONE (10:40)
[2018-01-14] MEDS ORDERED: LIDOCAINE HCL 1% PF 5 ML SYRINGE OTHER ONE (10:40)
[2018-01-14] MEDS ORDERED: NEOSTIGMINE 5 MG/5 ML SYRINGE IV PUSH ONE (10:40)
[2018-01-14] MEDS ORDERED: PHENYLEPH/NS 1000 MCG/10 ML SYR IV ONE (10:40)
[2018-01-14] MEDS ORDERED: ONDANSETRON HCL 4 MG/2 ML VIAL IV PUSH ONE (10:40)
[2018-01-14] MEDS ORDERED: DEXAMETHASONE SOD PHOS 4 MG/ML VIAL IV ONE (10:40)
[2018-01-14] MEDS ORDERED: GLYCOPYRROLATE 1 MG/5 ML SYRINGE IV PUSH ONE (10:40)
[2018-01-14] MEDS ORDERED: *morphine SULFATE 4 MG/ML PERIprocedure ONLY ONE ×2 (10:52→11:13)
[2018-01-14] MEDS ORDERED: diphenhydrAMINE HCL 50 MG/ML VIAL ONE (11:40)
[2018-01-14] MEDS ORDERED: ONDANSETRON ODT 4 MG TAB ONE (11:50)
[2018-01-14] MEDS: CALCIUM/VITAMIN D 250 MG/125 U TAB PO SCH ×2 (13:00→18:21)
[2018-01-14] MEDS: LACTATED RINGER'S 1000 ML INJ 1,000 ML IV SCH (13:00)
[2018-01-14] MEDS ORDERED: ONDANSETRON ODT 4 MG TAB PO ONE (13:45)
--- NOTE | 2018-01-14 15:03 | RADRPT ---
EXAM DATE: 01/14/2018 2:05 PM EDT AGE/SEX: 72 years / Female INDICATIONS: ORIF left humeral head fracture. CLINICAL DATA: This is the patient's initial encounter. Patient reports that signs and symptoms have been present for 1 day and indicates a pain score of Nonresponsive. MEDICAL/SURGICAL HISTORY: Non-responsive. Non-responsive. COMPARISON: No prior exams available for comparison. FINDINGS: 6 images from the OR have been submitted. There is a plate along the lateral aspect of the humeral he ad and proximal humeral shaft secured by multiple screws. The hardware is well placed. The proximal h umerus is well aligned. The glenohumeral joint is aligned. CONCLUSION: Successful ORIF. Electronically signed by: Geovanny Mckeon MD 01/14/2018 3:01 PM EDT
[2018-01-14] MEDS: ceFAZolin 2 GM PREMIX 50 ML IV SCH (18:21)
[2018-01-14] MEDS: ACETAMINOPHEN/HYDROcodone 325 MG/10 MG TAB PO PRN ×3 (18:21→23:51)
[2018-01-14 18:22] VITALS: BP 100/57; PULSE 71; RESP 16; TEMP 97.3; O2SAT 98
[2018-01-14 20:05] VITALS: BP 110/59; PULSE 62; RESP 18; TEMP 98.2; O2SAT 99
[2018-01-14] MEDS: DOCUSATE SODIUM 50 MG/SENNA 8.6 MG TAB PO SCH (21:21)
[2018-01-14 23:09] VITALS: BP 101/55; PULSE 64; RESP 18; TEMP 97.5; O2SAT 98
[2018-01-14] MEDS: diphenhydrAMINE HCL 25 MG CAP PO PRN (23:49)
[2018-01-15] MEDS: LACTATED RINGER'S 1000 ML INJ 1,000 ML IV SCH (02:15)
[2018-01-15] MEDS: ceFAZolin 2 GM PREMIX 50 ML IV SCH ×2 (02:42→08:34)
[2018-01-15 04:08] VITALS: BP 106/57; PULSE 60; RESP 18; TEMP 97.9; O2SAT 97
[2018-01-15] MEDS: ACETAMINOPHEN/HYDROcodone 325 MG/10 MG TAB PO PRN ×2 (04:23→07:56)
--- NOTE | 2018-01-15 06:37 | PD.ORT.PN ---
Subjective Subjective Remarks POD 1 s/p ORIF left proximal humerus fx doing well. pain controlled. no new complaints. Objective Vitals Vital Signs Date Time Temp Pulse Resp B/P (MAP) Pulse Ox O2 Delivery O2 Flow Rate FiO2 01/15/18 05:11 18 01/15/18 04:08 97.9 60 18 106/57 (73) 97 01/14/18 23:09 97.5 64 18 101/55 (70) 98 01/14/18 23:01 Room Air 01/14/18 20:05 98.2 62 18 110/59 (76) 99 01/14/18 18:22 97.3 71 16 100/57 (71) 98 01/14/18 12:45 97.9 58 18 139/67 (91) 94 Room Air 01/14/18 12:15 57 18 124/68 (86) 94 Room Air 01/14/18 12:00 62 18 122/65 (84) 94 Room Air 01/14/18 11:45 56 18 127/67 (87) 94 Room Air 01/14/18 11:30 58 18 128/67 (87) 95 Room Air 01/14/18 11:15 58 18 136/72 (93) 95 Room Air 01/14/18 11:00 61 18 138/66 (90) 100 Nasal Cannula 2 01/14/18 10:45 67 16 124/63 (83) 100 Nasal Cannula 3 01/14/18 10:29 96.5 69 16 125/69 (87) 100 Nasal Cannula 3 01/14/18 07:32 99 Nasal Cannula 2 01/14/18 07:32 62 01/14/18 07:24 97.8 64 18 134/73 (93) 100 I/O 01/14/18 01/14/18 01/14/18 01/15/18 01/15/18 01/15/18 07:00 15:00 23:00 07:00 15:00 23:00 Intake Total 500 ml 410 ml Output Total 100 ml Balance 400 ml 410 ml Intake Oral 360 ml IV Total 50 ml Other 500 ml Output Estimated Blood Loss 100 ml # Voids 4 # Bowel Movements 0 Result Diagram: 01/14/18 0745 Objective Remarks LUE: dressings clean and dry. itnact. NVI. Assessment & Plan Assessment and Plan 1) Left Proximal Humerus Fx s/p ORIF - POD 1 -NWB -maintain sling and swathe at all time except for PT -Pendulums 2-3x/day -daily dressing changes beginning POD 2 -plan for DC home today with C -f/u with Della or PA in 2 weeks Frandy Ramirez PA/[employer]iesel Powerplant Supervisor PA Jan 15, 2018 06:37
--- NOTE | 2018-01-15 06:38 | HHI.FF ---
Face to Face Verification Diagnosis: (1) Fracture of left humerus Occupational Therapy Left UE Weight Bearing: Non WB Left UE Range of Motion: Pendular Nursing Dressing Changes: Daily dressing change, Xeroform, Coverderm/Primapore I have seen patient Suellen Campos on 01/15/18. My clinical findings support the need for the requested home health care services because: Ltd mobility - disease progression I certify that my clinical findings support that this patient is homebound because: Post-op weakness Frandy Ramirez/Jet Man PA Jan 15, 2018 06:38
[2018-01-15] MEDS: diphenhydrAMINE HCL 25 MG CAP PO PRN (07:56)
[2018-01-15] MEDS: DOCUSATE SODIUM 50 MG/SENNA 8.6 MG TAB PO SCH (07:56)
[2018-01-15] MEDS: CALCIUM/VITAMIN D 250 MG/125 U TAB PO SCH (07:57)
[2018-01-15 08:31] VITALS: BP 104/53; PULSE 66; RESP 18; TEMP 97.8; O2SAT 98
[2018-01-15 08:56] VITALS: RESP 18
[2018-01-15] MEDS ORDERED: CHOLECALCIFEROL (VIT D3) 1000 UNIT TAB PO SCH (09:00)
== END 2018-01-15 10:41 | disposition home health service (06) ==
LOC: HSDC 06:17 → HSDI 10:06 → N06A 13:28
PROVIDERS: ADMIT Orthopaedic Surgery Orthopaedic Trauma; ATTEND Orthopaedic Surgery Orthopaedic Trauma
DX: S42.292A Other displaced fracture of upper end of left humerus, initial encounter for closed fracture (principal); E05.90 Thyrotoxicosis, unspecified without thyrotoxic crisis or storm; G91.9 Hydrocephalus, unspecified; W01.198A Fall on same level from slipping, tripping and stumbling with subsequent striking against other object, initial encounter
CPT/HCPCS: 01630; 23615; 73030; 76000; 85025; 96365; 96376; 97110; 97166; C1713; C9290; G0378; G8987; G8988; J0690; J1100; J1200; J1580; J2250; J2270; J2370; J2405; J2710; J3010; J3370; J7050; J7120